=== PATIENT | female | born 1985 | race Caucasian/White ===

== ENCOUNTER 2020-01-17 14:13 | Outpatient (REF) | payer BC, SELFPAY | END 2020-01-17 14:14 | disposition home or self-care (01) | LOC: HO.LAB 14:13 | PROVIDERS: PCP Internal Medicine Endocrinology, Diabetes & Metabolism; Visit Provider Internal Medicine | DX: Z20.828 Contact with and (suspected) exposure to other viral communicable diseases (principal) | CPT/HCPCS: C9803; U0003 ==

== ENCOUNTER 2024-07-23 15:45 | Outpatient (REF) | payer BC, SELFPAY ==
--- NOTE | ~2024-07-23 | MR_ITS ---
CLINICAL HISTORY: SEIZURE DISORDER MR Brain with and without gadolinium Comparison: None Findings: The ventricles and subarachnoid spaces are normal in size and the ventricles are normal in position with no midline shift or herniation. No restricted diffusion. No territorial infarct. No acute intra-axial or extra-axial hemorrhage. No focal mass lesion, mass effect or abnormal enhancement. Solitary 4 mm focus of T1 and FLAIR hypointensity in T2 hyperintensity is demonstrated lateral to the right basal ganglia anteriorly with no abnormal enhancement in the no definite blooming artifact on gradient echo images. The midline structures are grossly normal. Flow voids are maintained within the major vessels of the base of the brain. The orbits are normal. Right maxillary sinus is completely opacified. No focal bone lesion. IMPRESSION: 1. No acute findings. 2. Solitary 4 mm focus of abnormal signal lateral to right basal ganglia anteriorly with no abnormal enhancement. This is nonspecific. This document has been electronically signed by: Radha Knapp MD on 07/23/2024 18:06:44
--- OUTSIDE RECORDS SUMMARY | 2024-07-23 15:53 | XMS_ITS | Clinical Summary ---
Author Organization [facility] [address] [facility] Address [address] [place] [address] Phone Care Team Providers Care International Accounting Manager Name Role Phone Adilia Gómez MD Primary Care Pr ovider Allergies No known active allergies Medications cetirizine (ZyrTEC) 10 mg tablet Take 1 tablet (10 mg total) by mouth if needed. 3 Active adalimumab (Humira,CF, Pen) 40 mg/0.4 mL pen Inject 0.8 mL (80 mg total) under the skin every 14 (fourteen) days. 1 Active apixaban (ELIQUIS) 5 mg tablet Take 1 tablet (5 mg total) by mouth 2 (two) times a day. 180 tablet 3 5 Active dilTIAZem CD (CARDIZEM CD) 120 mg 24 hr capsule Take 1 capsule (120 mg total) by mouth 1 (one) time each day. 90 each 3 5 04/22/19 26 Active Stool Softener 100 mg capsule TAKE 1 CAPSULE BY MOUTH 2 TIMES A DAY IF NEEDED FOR CONSTIPATION . 180 capsule 1 5 Active semaglutide (Wegovy) 0.25 mg/0.5 mL injection pen Inject 0.25 mg under the skin every 7 (seven) days. 6 mL 5 Active semaglutide (Wegovy) 0.25 mg/0.5 mL injection pen Inject 0.25 mg under the skin every 7 (seven) days. 6 mL 5 07/08/19 25 Discontinu ed(Reorder ) Active Problems Problem Noted Date Diagnosed Date Primary hypertension 04/21/2024 Assessment & Plan (04/22/2024 9:15 AM EST): Blood pressure well-controlled on diltiazem. Continue PAC (premature atrial contraction) 03/29/2024 Overview (03/29/2024): Holter 03/2023 Atrial fibrillation with rap id ventricular response (CMS/HCC V24, CMS/HCC V28) 03/29/2024 Overview (04/22/2024): Holter 03/2023: Impression: Normal sinus rhythm and sinus bradycardia with frequent premature atrial complexes and a prolonged episode of atrial fibrillation with a rapid ventricular response associated with shortness of breath. -Diltiazem for rate control strategy -Anticoagulated with apixaban Assessment & Plan (04/22/2024 9:15 AM EST): This very and patient has atrial fibrillation noted on her Holter monitor. Interestingly, we will switch to diltiazem. All her symptoms have improved including dizziness, shortness of breath, headaches and palpitations. She is quite pleased! Her [id number] score is 2 (female gender and hypertension) as such, will remain on anticoagulation. She does have some vague discomfort sensation in her chest and previously noted some breathlessness. She does have a mild myopathy as noted on her echocardiogram with LVEF 45-50%. Therefore, we will obtain an exercise stress echocardiogram. It is possible, though, that her mild myopathy is related to A- fib with RVR and will improve now that she is on an AV domingo blocking agent. She also indicates that she snores. Given that she has atrial fibrillation with a mild myopathy, will order home sleep study test Will also refer the patient to electrophysiology given the fact that she is quite young to have this diagnosis of atrial fibrillation. All her questions are answered to the best of my ability. Hidradenitis suppurativa 04/30/2020 Depression 06/25/2019 Obesity (BMI 30.0-34.9) 03/27/2018 Assessment & Plan (04/29/2024 7:56 AM EST): Advised to continue with dietary changes and resume exercise. Will start Wegovy. She is counseled on the possible side effects of the medication. She will follow-up in 4 months for weight check and send me a message monthly for prescription request so that she can be titrated upwards on the dose of the wegovy Orders: semaglutide (Wegovy) 0.25 mg/0.5 mL injection pen; Inject 0.25 mg under the skin every 7 (seven) days. Acne vulgaris 10/30/2016 Sickle cell trait (CMS/HCC V24) 04/13/2013 Encounters Date Type Department Care Team Description 06/22/2024 Telephone Adult Medicine [address] [phone] Adilia Gómez MD Prior Auth Approval (Wegovy) 06/14/2024 Telephone [facility] [address] [facility] [address] [place] [address] Prabhjot Dyer MD Procedure (PFA Afib Ablation 7.16.25) 06/07/2024 8:40 AM EDT Consult [facility] [address] [facility] [address] [place] [address] Prabhjot Dyer MD Atrial fibrillation with rapid ventricular response (CMS/HCC V24, CMS/HCC V28) (Primary Dx) 05/24/2024 Telephone [facility] [address] [facility] [address] [place] [address] Gosia Ritchie NP Sleep Study 05/18/2024 Telephone Adult Medicine [address] [phone] Adilia Gómez MD prior auth for medication 05/09/2024 2:30 PM EST Ancillary Procedure [facility] [address] [facility] [address] [place] [address] Primary hypertension; Atrial fibrillation with rapid ventricular response (CMS/HCC V24, CMS/HCC V28); Chest discomfort 05/03/2024 Telephone Adult Medicine [address] [phone] Adilia Gómez MD Medication Problem 04/29/2024 7:30 AM EST Telemedicine Adult Medicine [address] [phone] Adilia Gómez MD Obesity (BMI 30.0-34.9) (Primary Dx) from Last 3 Months Immunizations Name Administration Dates Next Due HPV, Quadrivalent 03/09/2008 Influenza Quadravalent, MDCK , 0.5ml, preservative free (Flucelvax) 6mo and older 04/09/2022,04/26/2019 Influenza trivalent, 0.5mL, preservative free (Fluarix; FluLaval; Fluzone) ages 6mo and older (Afluria) 3 years and older 12/28/2019,12/21/2009,05/22/2009 Td Tetanus diptheria (Tdvax) 7yo and older 04/30 Tdap Tetanus diptheria acell ular pertussis (Boostrix; Adacel) 7yo and older 01/07/2010 Surgical History Surgery Date Site/Laterality Comments WISDOM TOOTH EXTRACTION 2013 PROCEDURE: HISTORICAL WISDOM TEETH EXTRACTION Medical History Medical History Date Comments Ankle fracture, right DX:Ankle f racture, right Family History Medical History Relation Name Comments Other: car accident Brother 1 Diabetes Maternal Grandfather Diabetes Maternal Grandmother Hypertension Mother CABG Other UNCLE Other: htn Sister Stroke Uncle Mother's Side Breast cancer Neg Hx Colon cancer Neg Hx Ovarian cancer Neg Hx Relation Name Status Comments Brother 1 Car Accident Brother 2 Alive Daughter Alive Maternal Grandfather Maternal Grandmother Mother Alive Other UNCLE Alive Sister Alive Uncle Social History Tobacco Use Types Packs/Day Years Used Date Smoking Tobacco: Never Smokeless Tobacco: Never Tobacco Cessation:Counseling Given: Not Answered Alcohol Use Standard Drinks/Week Comments Yes 0 (1 standard drink = 0.6 oz pur e alcohol) Housing Instability Answer Date Recorde d Are you worried that in the next 2 months you may not have stable housing? No 02/24/2024 Food Access & Nutrition Answer Date Rec orded Do you have access to a vari ety of food including fruits and vegetables? Yes 02/24/2024 Access to Healthcare Answer Date Record ed Within the last 3 months, ho w many times did you visit the emergency department for your medical care? 0 02/24/2024 Health Literacy Answer Date Recorded How often do you need to hav e someone help you when you read instructions, pamphlets, or other written material from your doctor or pharmacy? Never 02/24/2024 Caregiver: How often do you need to have someone help you when you read instructions, pamphlets, or other written material from your doctor or pharmacy? Not on file 02/24/2024 Financial Risk Answer Date Recorded How hard is it for you to pa y for the very basics like food, housing, medical care, and air conditioning / heating? Not very hard 02/24/2024 Transportation Answer Date Recorded Has the lack of transportati on kept you from meetings, work, or from getting things needed for daily living? No Has the lack of transportati on kept you from medical appointments or from getting medications? No 02/24/2024 Social Isolation Answer Date Recorded How often do you feel lonely or isolated from those around you? Sometimes 02/24/2024 Food Risk Answer Date Recorded Within the past 12 months we worried whether our food would run out before we got money to buy more. Never true 02/24/2024 Within the past 12 months th e food we bought just didn't last and we didn't have money to get more. Never true 02/24/2024 Dependent Care Answer Date Recorded Do you need help finding or paying for care for your loved ones. For example, child specialist or elderly care for an older adult? No 02/24/2024 Education Answer Date Recorded Do you think completing more education or training, like finishing a GED, going to college, or learning a trade, would be helpful for you? No 02/24/2024 Employment and Income Answer Date Recor ded During the last four weeks, have you been actively looking for work? No 02/24/2024 Living Situation Answer Date Recorded What is your living situation? 1 04/26/2023 Comments No Sex and Gender Information Value Date Recorded Sex Assigned at Not on file Legal Sex Female 6:15 PM EST Gender Identity Not on file Sexual Orientation Not on file Obstetrics History Last Filed Vital Signs Vital Sign Reading Time Taken Comments Blood Pressure 126/70 06/07/2024 8:22 AM EDT Pulse 82 06/07/2024 8:22 AM EDT Temperature 36.7 ??C (98.1 ??F) 04/21/2024 3:59 PM ES T Respiratory Rate 14 03/18/2024 8:22 AM EST Oxygen Saturation 99% 06/07/2024 8:22 AM EDT Inhaled Oxygen Concentration - - Weight 105 kg (232 lb 6.4 oz) 06/07/2024 8:22 AM EDT Height 175.3 cm (5' 9 ) 06/07/2024 8:22 AM EDT Body Mass Index 34.32 06/07/2024 8:22 AM EDT Plan of Treatment Upcoming Encounters Date Type Department Care Team (Late st Contact Info) Description 09/21/2024 7:30 AM EDT Hospital Encounter [facility] Cardiac Extractions Technologist [address] [place] [phone] Prabhjot Dyer MD [address] [address] Atrial fibrillation with rapid ventricular response (CMS/HCC V24, CMS/HCC V28) 09/21/2024 7:30 AM EDT - 09/21/2024 9:30 AM EDT Surgery [facility] Cardiac Extractions Technologist [address] [place] [phone] Prabhjot Dyer MD [address] [address] Ablation Atrial Fibrillation [20615 (CPT??)] 10/17/2024 5:00 PM EDT Office Visit Adult Medicine [address] [phone] Adilia Gómez MD [address] [place] [address] 10/25/2024 1:40 PM EDT Office Visit [facility] 154 300 [facility] [address] [place] [phone] Emmanuelle Green NP [address] [phone] 02/28/2025 3:30 PM EST Office Visit Adult [phone] [facility] [address] [place] [address] Health Maintenance Due Date Last Done Comments Hepatitis B Vaccines (1 of 3 - 19+ 3-dose series) 2005 Pneumococcal Vaccine: Pediatrics (0 to 5 Years) and At-Risk Patients (6 to 64 Years) (1 of 2 - PCV) 2005 Cervical Cancer Screening: Pap Smear 2007 HPV Vaccines (2 - 3-dose series) 04/06/2008 03/09/2008 COVID-19 Vaccine ( season) 2023 02/26/2021, 06/15/2020, 05/18/2020 Influenza Vaccine (Season Ended) 2024 04/09/2022, 12/28/2019, 04/26/2019, Additional history exists Social Influencers of Health Screening 02/23/2025 02/24/2024 Hypertension/CHF/CAD Annual BMP Blood Test 02/24/2025 02/25/2024, 01/23/2021 Depression Screening 04/06/2025 04/06/2024 Cholesterol Screening (Lipid Panel) 02/24/2029 02/25/2024, 04/30/2020 DTaP,Tdap,and Td Vaccines (3 - Td or Tdap) 04/30/2030 04/30/2020, 01/07/2010 HIV Screening Completed 12/26/2019 Hepatitis C Screening Completed 12/26/2019 HIB Vaccines Aged Out No longer eligi ble based on patient's age to complete this topic Hepatitis A Vaccines Aged Out No long er eligible based on patient's age to complete this topic IPV Vaccines Aged Out No longer eligi ble based on patient's age to complete this topic MMR Vaccines Aged Out No longer eligi ble based on patient's age to complete this topic Meningococcal ACWY Vaccine Aged Out N o longer eligible based on patient's age to complete this topic Meningococcal B Vaccine Aged Out No l onger eligible based on patient's age to complete this topic RSV Immunization Patients Under 20 months Aged Out No longer eligible based on patient's age to complete this topic Varicella Vaccines Aged Out No longer eligible based on patient's age to complete this topic Procedures Procedure Name Priority Date/Time Associated Diagnosis Comments ECG 12-LEAD Routine 06/07/2024 9:21 AM EDT Atrial fibrillation with rapid ventricular response (CMS/HCC V24, CMS/HCC V28) STRESS ECHOCARDIOGRAM EXERCISE WITH CONTRAST Routine 05/09/2024 3:16 PM EST Primary hypertension Atrial fibrillation with rapid ventricular response (CMS/HCC V24, CMS/HCC V28) Chest discomfort COMPREHENSIVE METABOLIC PANEL Routine 02/25/2024 12:16 PM EST Annual physical exam LIPID PANEL WITH REFLEX TO DIRECT LDL Routine 02/25/2024 12:16 PM EST Annual physical exam HEPATITIS C SCREENING Routine 12/26/2019 HIV SCREENING Routine 12/26/2019 from Last 3 Months or Most Recently Relevant to Health Maintenance Results * ECG 12 lead (06/07/2024 9:21 AM EDT) Ventricular Rate ECG 82 BPM GEMUSE Atrial Rate 82 BPM GEMUSE P-R Interval 190 ms GEMUSE QRS Duration 90 ms GEMUSE Q-T Interval 422 ms GEMUSE QTc 493 ms GEMUSE P Wave Dixon 52 degrees GEMUSE R Dixon 37 degrees GEMUSE T Dixon 41 degrees GEMUSE ECG Interpretation Sinus rhythm with premature atrial complexes Prolonged QT Abnormal ECG No previous ECGs available Confirmed by Yelena DYER JOHN ([id number]) on 06/20/2024 3:44:04 PM GEMUSE 06/07/2024 8:27 AM EDT 06/20/2024 3:44 PM EDT us Prabhjot Dyer MD ECG ORDERABLES Edited Result - Final GEMUSE * (ABNORMAL) STRESS ECHOCARDIOGRAM EXERCISE WITH CONTRAST (05/09/2024 3:16 PM EST) IVSD 0.7 0.6 - 0.9 cm CV PACS STRESS LVIDD 5.8(A) 3.8 - 5.2 cm CV PACS STRESS LVIDS 4.4(A) 2.2 - 3.5 cm CV PACS STRESS LVPWD 0.8 0.6 - 0.9 cm CV PACS STRESS Relative Wall Thickness ratio 0.28 CV PACS STRESS FS 24 % CV PACS STRESS LV Mass 2D 162 g CV PACS STRESS LVIDD Index 2.64 cm/m2 CV PACS STRESS LVIDS Index 2.00 cm/m2 CV PACS STRESS LV Mass Index 2D 74 g/m2 CV PACS STRESS BSA 2.26 m2 CV PACS STRESS Target HR 155 bpm CV PACS STRESS Baseline HR 62 bpm CV PACS STRESS Baseline SBP 110 mmHg CV PACS STRESS Baseline DBP 80 mmHg CV PACS STRESS Peak HR 166 bpm CV PACS STRESS Peak SBP 150 mmHg CV PACS STRESS Peak DBP 84 mmHg CV PACS STRESS Estimated workload 9.8 METS CV PACS STRESS Rate Pressure Product 24,900.0 mmHg*bpm CV PACS STRESS Percent HR 91 % CV PACS STRESS Exercise/injec tion duration (min) 7 min CV PACS STRESS Exercise/injec tion duration (sec) 30 sec CV PACS STRESS Angina Index 0 CV PACS STRESS Max HR Percent 91 % CV PA CS STRESS Anatomical Region Laterality Modality Ultrasound Narrative 05/10/2024 10:09 AM EST ?Normal exercise echocardiogram stress test at a target heart rate and adequate functional capacity. ?Stress ECG was normal. ?Exercise capacity was average. Normal blood pressure response. ?Resting echo demonstrates mild left ventricular dilatation with low normal left ventricular systolic function. ??Right ventricle appears normal in size and systolic function. ??Other resting echo findings see recent complete echocardiogram. Left Ventricle Left ventricle cavity is mildly dilated. Wall thickness is normal. Systolic function is low normal with an ejection fraction of 50-55%. Right Ventricle Right ventricle cavity appears normal. Systolic function is normal. Study Details Overall the study quality was technically difficult. Definity contrast was given to enhance imaging. Study was difficult due to: poor endocardial visualization. Stress Findings A Kyle protocol stress test was performed. Overall, the patient's exercise capacity was average. The patient reached stage 3. Total stress time was 7 min and 30 sec. The patient experienced no angina during the test. The test was stopped because the patient experienced fatigue and shortness of breath. The patient requested the test to be stopped. The patient's hemodynamic response was adequate for diagnosis. Blood pressure demonstrated a normal response. Heart rate demonstrated a normal response. The patient reported mild dyspnea during the stress test which resolved in early recovery. 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 Risk factors include hypertension and obesity. No previous cardiac events. Baseline ECG shows sinus rhythm with blocked PACs versus sinus arrhythmia. The ECG axis is normal. Arrhythmias during stress: frequent premature atrial contractions (PACs) as well as occasional ectopic atrial beats. There is no significant ST abnormalities during stress. Arrhythmias during recovery: occasional premature atrial contractions (PACs) and ectopic atrial beats. The result of the stress ECG was negative for ischemia. Echo Post Stress Left ventricular cavity size decreased from baseline. Left ventricular systolic function improved from baseline. Normal thickening of all left ventricular segments. However, there is a septal bounce post exercise. Procedure Note Izzy Fan NP / Riley Multani MD - 05/10/2024 ? ? Normal exercise echocardiogram stress test at a target heart rate andadequate functional capacity. ? ? Stress ECG was normal. ? ? Exercise capacity was average. Normal blood pressure response. ? ? Resting echo demonstrates mild left ventricular dilatation with lownormal left ventricular systolic function. Right ventricle appears normalin size and systolic function. Other resting echo findings see recentcomplete echocardiogram. Gosia Ritchie NP CV ECHO PROCEDURES Final Result * Lipid panel with reflex to direct LDL (02/25/2024 12:16 PM EST) [facility] Cholesterol 180 0 - 200 mg/dL LAB CHEMISTRY METHOD 02/25/2024 3:[address] [facility] Triglycerides 124 0 - 150 mg/dL LAB CHEMISTRY METHOD 02/25/2024 3:04 PM [facility] HDL 69 >=40 mg/dL LAB CHEMISTRY METHOD 02/25/2024 3:[address] [facility] LDL Calculated 86 0 - 100 mg/dL LAB CHEMISTRY METHOD 02/25/2024 3:[address] [facility] VLDL Cholesterol August 24.8 mg/dL LAB CHEMISTRY METHOD 02/25/2024 3:[address] [facility] Non HDL Chol. (LDL+VLDL) 111 <145 mg/dL LAB CHEMISTRY METHOD 02/25/2024 3:[address] [facility] Chol/HDL Ratio 2.6 0.0 - 4.4 LAB CHEMISTRY METHOD 02/25/2024 3:04 PM [facility] Blood Venous blood specimen / Unknown Venipuncture / Unknown 02/25/2024 12:16 PM EST 02/25/2024 12:[address] [facility] BLOOD ORDERABLES Final Re sult [facility] [address] [place] [address], [place] [phone] * Comprehensive metabolic panel (02/25/2024 12:16 PM [facility]) [facility] Sodium 139 133 - 145 mmol/L LAB CHEMISTRY METHOD 02/25/2024 2:41 PM [facility] Potassium 4.0 3.5 - 5.5 mmol/L LAB CHEMISTRY METHOD 02/25/2024 2:41 PM [facility] Chloride 106 96 - 110 mmol/L LAB CHEMISTRY METHOD 02/25/2024 2:41 PM [facility] CO2 26 21 - 32 mmol/L LAB CHEMISTRY METHOD 02/25/2024 2:41 PM [facility] Anion Gap 7 3 - 11 LAB CHEMISTRY METHOD 02/25/2024 2:41 PM [facility] Glucose 80 70 - 100 mg/dL LAB CHEMISTRY METHOD 02/25/2024 2:41 PM [facility] BUN 9 5 - 25 mg/dL LAB CHEMISTRY METHOD 02/25/2024 2:41 PM [facility] Creatinine 0.87 0.50 - 1.10 mg/dL LAB CHEMISTRY METHOD 02/25/2024 2:41 PM [facility] eGFR 88 >=60 mL/min/1. 73m2 LAB CHEMISTRY METHOD 02/25/2024 2:41 PM [facility] Comment:Calculation based on the??Chronic Kidney Disease Epidemiology Collaboration (CKD-EPI) equation refit??without adjustment for race. BUN/Creatinine Ratio 10.3 LAB CHEMISTRY METHOD 02/25/2024 2:41 PM [facility] Calcium 9.2 8.5 - 10.5 mg/dL LAB CHEMISTRY METHOD 02/25/2024 2:41 PM [facility] AST (SGOT) 14 10 - 42 unit/L LAB CHEMISTRY METHOD 02/25/2024 2:41 PM [facility] ALT (SGPT) 12 10 - 60 unit/L LAB CHEMISTRY METHOD 02/25/2024 2:[address] [facility] Alkaline Phosphatase 58 42 - 121 unit/L LAB CHEMISTRY METHOD 02/25/2024 2:[address] [facility] Total Protein 7.7 6.0 - 8.0 g/dL LAB CHEMISTRY METHOD 02/25/2024 2:[address] [facility] Albumin 3.3 3.2 - 5.0 g/dL LAB CHEMISTRY METHOD 02/25/2024 2:41 PM [facility] Total Bilirubin 0.5 0.0 - 1.4 mg/dL LAB CHEMISTRY METHOD 02/25/2024 2:41 PM [facility] Blood Venous blood specimen / Unknown Venipuncture / Unknown 02/25/2024 12:16 PM EST 02/25/2024 12:[address] [facility] BLOOD ORDERABLES Final Re sult [facility] Organization Address City/State/ZIP Co de Phone Number [facility] [address] [place] [address], * HIV Screening (12/26/2019) [facility] HIV Screening abstracted Historical Provider HEALTH MAINTENANCE Final Result * Hepatitis C Screening (12/26/2019) [facility] Hepatitis C Screening abstracted Historical Provider HEALTH MAINTENANCE Final Result from Last 3 Months or Most Recently Relevant to Health Maintenance Insurance [facility] Care Teams International Accounting Manager Relationship Specialty Start Date End Date Adilia Gómez MD [address] [place] [id number] PCP - General Internal Medicine 06/03/24
--- OUTSIDE RECORDS SUMMARY | 2024-07-23 15:53 | XMS_ITS | Encounter Summary ---
Author Organization [facility] Address [address] [place] [address] Care Team Providers Care State Historical Society Director Name Role Phone Adilia Gómez MD Primary Care Pr ovider Reason for Visit * Reason Onset Date Comments Procedure 06/14/2024 PFA Afib Ablatio n 7.16.25 Encounter Details Date Type Department Care Team (Late st Contact Info) Description 06/14/[address] [facility] - [facility] [address] [facility] [address] [place] [phone] Prabhjot Dyer MD 300 [facility] [address] [place], [place] [phone] Procedure (PFA Afib Ablation 7.16.25) Social History Tobacco Use Types Packs/Day Years Used Date Smoking Tobacco: Never Smokeless Tobacco: Never Alcohol Use Standard Drinks/Week Comments Yes 0 [...] Record ed Within the last 3 months, jerson hidalgo many times did you visit the emergency [...] care for your loved ones. For example, housekeeper child care or elderly care for an older adult? [...] on file Sexual Orientation Not on file documented as of this encounter Progress Notes * Candelario Schaeffer - 07/18/2024 9:04 AM EDTAddended by: CANDELARIO SCHAEFFER on: 07/18/2024 09:04 AM Modules accepted: Orders * Candelario Schaeffer - 07/18/2024 9:03 AM EDT Afib Ablation 94904 Dx Afib I48.11 w/ JPM on 09.21.24 at [facility] * Candelario Schaeffer - 07/18/2024 9:00 AM EDT Spoke with patient about procedure. Scheduled on 09.21.[address] Dyer at [facility] at 730am Mailing packet to patient today Packet mailed to patient includes instructions with medications, follow-up, lab orders, pre/post procedural care, my direct number and pamphlet for procedure Confirmed address on file Arrival time 630am Bloodwork to be done within 30 days of and or at least a week before procedure at any lab of choice, *[facility], [facility] or [facility] ect* (Labs are not fasting) - ATTACHED TO PACKET (3 papers stapled together) Medication instructions are to hold: WEGOVY a week before procedure. Hold ELIQUIS morning of procedure Patient has been notified if they are taking or starting any GLP-1, Weight loss medications it needs to be held a week before procedure additionally they need to be on a CLEAR LIQUID DIET packet includes restrictions on the diet on what to take and not to take. Guidelines noted on packet. It is also instructed if they started any NEW medications to call the office to let us know. This way we avoid any cancellations. You can take all your regular morning medications with some water These instructions are given verbal and written and understood Patient aware of importance of NOT missing any anticoagulation for 4 weeks. - if you do call us to reschedule do not wait to arrive at procedure date. Patient aware if they do NOT follow these instructions or show up to procedure they will have to berescheduled to next available which could take up to 6 to 10 weeks. Patient will have to be fasting from midnight night before procedure. Patient made aware that they will need to make arrangements for transportation to procedure and upon discharge at the hospital - no ride will means they will cancel procedure Patient is to report to [facility] to the 3rd floor - Near Patient Registration Patient agreed to all instructions and date, time and location above via phone Case Request sent documented in this encounter Plan of Treatment Upcoming Encounters Date Type Department Care Team (Late st Contact Info) Description 09/21/2024 7:30 AM EDT Hospital Encounter [facility] [address] [place] [phone] Prabhjot Dyer MD [address] [address] Atrial fibrillation with rapid ventricular response (CMS/HCC V24, CMS/HCC V28) 09/21/2024 7:30 AM EDT - 09/21/2024 9:30 AM EDT Surgery [facility] [address] [place] [phone] Prabhjot Dyer MD [address] [address] Ablation Atrial Fibrillation [80[address] (CPT??)] 10/17/2024 5:00 PM EDT Office Visit [address] [phone] Adilia Gómez MD [address] [place] [phone] 10/25/2024 1:40 PM EDT Office Visit [facility] [address] [phone] Emmanuelle Green NP [address] [phone] 02/28/2025 3:30 PM EST Office Visit Adult Medicine [address] [phone] [address] PA [address] [place] [address] Scheduled Orders Name Type Priority Associated Diagnoses Orde r Schedule Prothrombin time with INR Lab Routine Atrial fibrillation with rapid ventricular response (CMS/HCC V24, CMS/HCC V28) 1 Occurrences starting 07/18/2024 until 07/18/2025 Basic metabolic panel Lab Routine Atrial fibrillation with rapid ventricular response (CMS/HCC V24, CMS/HCC V28) 1 Occurrences starting 07/18/2024 until 07/18/2025 Complete blood count Lab Routine Atrial fibrillation with rapid ventricular response (CMS/HCC V24, CMS/HCC V28) 1 Occurrences starting 07/18/2024 until 07/18/2025 HCG, quantitative Lab Routine Atrial fibrillation with rapid ventricular response (CMS/HCC V24, CMS/HCC V28) 1 Occurrences starting 07/18/2024 until 07/18/2025 documented as of this encounter Visit Diagnoses Diagnosis Atrial fibrillation with rapid ventricular response (CMS/HCC V24, CMS/HCC V28)- Primary Atrial fibrillation with rapid ventricular response (CMS/HCC V24, CMS/HCC V28)- Primary Atrial fibrillation with rapid ventricular response (CMS/HCC V24, CMS/HCC V28) documented in this encounter Additional Health Concerns Assessment Noted Time PHQ-9 Depression Total Score: 0 04/06/19 25 12:14 PM EST documented as of this encounter Care Teams State Historical Society Director Relationship Specialty Start Date End Date Adilia Gómez MD [address] [place] [id number] PCP - General Internal Medicine 06/03/24 documented as of this encounter
[2024-07-23] MEDS: gadobutroL 10 ML VIAL IVPUSH (16:50)
== END 2024-07-23 15:46 | disposition home or self-care (01) ==
LOC: HO.MRI 15:45
PROVIDERS: PCP Family Medicine; Visit Provider Psychiatry & Neurology Neurology
DX: G40.909 Epilepsy, unspecified, not intractable, without status epilepticus (principal)
CPT/HCPCS: 70553; A9585

== ENCOUNTER → 2024-07-23 16:13 | Outpatient (BNV) | payer BC, SELFPAY | PROVIDERS: PCP Family Medicine; Visit Provider Specialist | DX: R90.89 Other abnormal findings on diagnostic imaging of central nervous system (principal) | CPT/HCPCS: 70553 ==

== ENCOUNTER 2024-07-23 17:00 | Emergency (ER) | payer BC, SELFPAY ==
--- NOTE | 2024-07-23 17:08 | ED.GENADULT ---
HPI - General Adult General Chief complaint: Allergic Reaction Stated complaint: was an outpatient Time Seen by Provider: 07/23/24 17:08 Source: patient Mode of arrival: ambulatory Limitations: no limitations History of Present Illness ED Provider: Regis Sanabria DO HPI narrative: 39-year-old female with past medical history of recent atrial fibrillation on blood thinner presents to the ED after outpatient MRI due to a widespread rash described as hives within minutes after receiving MRI contrast. Patient denies difficulty breathing diarrhea but does report sensation of tingling and swelling of her lips. She denies history of allergic reaction in the past. She has no additional symptoms today. Related Data Allergies Allergy/AdvReac Type Severity Reaction Status Date / Time adhesive Allergy Rash Verified 07/23/24 17:19 Iodinated Contrast Media Allergy Hives Verified 07/23/24 17:19 [Contrast Dye] Review of Systems Review of Systems: Yes all other systems are reviewed and are negative [facility] Social History Social History Smoked in Last 30 Days: No Use of substances other than those prescribed or required for medical reasons: No Advance Directives: No Advance Directives Information Provided: No Do you have a plan to hurt others: No Plan Physical Exam ED Vital Signs: Vital Signs - 24 hr 07/23/24 17:16 07/23/24 18:00 07/23/24 18:59 Temperature 98.1 F 98.4 F Pulse Rate 70 61 Respiratory Rate 18 16 Blood Pressure 156/65 H 137/90 H Pulse Oximetry 99 100 98 Oxygen Delivery Method Room Air Room Air Room Air BMI result Body Mass Index 33.4 Constitutional: ?Alert, oriented, speaking in full sentences HEENT: ?Normocephalic, atraumatic. ?Moist mucous membranes, no obvious edema to the lips, tongue, palate or uvula. Eyes: ?PERRL, EOMI Neck: ?Supple, nontender Chest: ?No chest wall tenderness Respiratory: ?Lungs clear to auscultation, no increased work of breathing Cardio: ?Regular rate and rhythm, no murmur, 2+ radial and DP pulses symmetrically GI: ?Soft, nondistended, nontender Back: ?Normal range of motion, nontender Skin: ?Sparse urticarial rash diffusely extremities and torso, otherwise no lesions Neuro: ?Alert and oriented to person, place and time, moves all 4 extremities, no focal deficits Extremities: ?No swelling or tenderness, full range of motion Psych: ?Calm, alert and cooperative, appropriate behavior Medications Administered Discontinued Medications Generic Name Dose Route Start Last Admin Trade Name Malcom PRN Reason Stop Dose Admin Dexamethasone 10 mg 07/23/24 17:31 07/23/24 17:57 Dexamethasone 2 Mg Tablet PO 07/23/24 17:32 10 mg ONCE ONE Administration Diphenhydramine HCl 25 mg 07/23/24 17:31 07/23/24 17:57 Diphenhydramine Hcl 25 Mg Capsule PO 07/23/24 17:32 25 mg ONCE ONE Administration Medical Decision Making Medical Decision Making [facility] Narrative: Patient presenting with signs and symptoms consistent with allergic reaction limited to the skin after receiving contrast dye for MRI. We will treat with dexamethasone and diphenhydramine and observe for any worsening symptoms. At this time there are no signs of angioedema or anaphylaxis and no indication for epinephrine. Patient observed for multiple hours and has complete resolution in her pruritic symptoms with no development of other symptoms. She is stable for discharge to home and is provided strict return precautions and discussion with her provider regarding MRI of the brain as she as an outpatient. Discharge Plan Discharge Clinical Impression: Allergic reaction Patient Disposition: Home, Self-Care Instructions: General Allergic Reaction (ED) Additional Instructions: You were evaluated for an allergic reaction to MRI contrast. Please avoid contrast in the future if obtaining MRI. You can continue Benadryl 25 mg up to every 6 hours as needed for persistent itchiness. You can also take cetirizine once a day until these symptoms resolve. Please return if you have any swelling in her throat, difficulty breathing or talking, severe abdominal pain, vomiting or diarrhea or any other new symptoms that concern you. Print Language: Welsh
[2024-07-23 17:16] VITALS: BP 156/65; PULSE 70; RESP 18; TEMP 36.7; O2SAT 99; BMI 33.4
--- NOTE | 2024-07-23 17:23 | PC.NURSE ---
Pt comes to ED from MRI department s/p imaging with contrast dye with the onset of widespread hives and tingling/swelling to upper lip. Pt denies SOB, pain, swelling/numbness to tongue, and difficulty swallowing a this time. Pt is A&Ox3 VSS O2 99% room air. Awaiting ED provider.
[2024-07-23] MEDS: dexAMETHasone 2 MG TABLET 10 MG PO (17:57)
[2024-07-23] MEDS: diphenhydrAMINE HCL 25 MG CAPSULE PO (17:57)
[2024-07-23 18:00] VITALS: O2SAT 100
--- NOTE | 2024-07-23 18:56 | PC.NURSE ---
assumed care of patient, resting comfortbaly with family at bedside no compliants at this time. Reporting hives are clearing up and no swelling and tingling to mooooouth
[2024-07-23 18:59] VITALS: BP 137/90; PULSE 61; RESP 16; TEMP 36.9; O2SAT 98
[2024-07-23 19:21] VITALS: BP 137/90; PULSE 61; RESP 16; TEMP 36.9; O2SAT 98
== END 2024-07-23 19:29 | disposition home or self-care (01) ==
PROVIDERS: Emergency Provider Emergency Medicine; PCP Family Medicine
DX: R21 Rash and other nonspecific skin eruption (principal); I48.91 Unspecified atrial fibrillation; K13.0 Diseases of lips; T78.40XA Allergy, unspecified, initial encounter; X58.XXXA Exposure to other specified factors, initial encounter; Y93.9 Activity, unspecified; Y92.9 Unspecified place or not applicable; Y99.9 Unspecified external cause status
CPT/HCPCS: 99283; 99284; J8540